=== PATIENT | female | born 1955 | race Caucasian/White ===

== ENCOUNTER → 2017-07-09 | Outpatient (CLI) | payer BC ==
[~2017-07-09] MED LIST: ACTOS15 MG PO; ALTACE1.25 MG PO; ASPIR 8181 M1 PO; Atarax,Vistaril PO; BIAXIN250 MG PO; CALAMINE LOTIO120 ML TP; CENTRUM SILVER1 EAC3 PO; CLARITIN10 MG PO; DELTASONE20 MG PO; FISH OIL 1,2001 EAC3 PO; FISH OIL500 MG PO; FLEXERIL10 MG PO; GABAPENTIN400 MG PO; GINKGO BILOBA120 M1 PO; Glucophage PO; Glucotrol PO; HALFPRIN162 MG; HUMALOG100 UNIT/1 SC; Hydrodiuril,Oretic,E PO; KEFLEX500 MG PO; LANTUS 3 M100 UNITS1 SC; LIPITOR20 MG PO; LOW DOSE ASPIRI81 M2 PO; Lipitor PO; MONOPRIL20 MG PO; MULTI VITAMIN1 EACH PO; NAPROSYN500 MG PO; NORCO 5/3251 TABLET PO; PERCOCET 5/31 TABLET PO; PRINIVIL20 MG PO; PROTONIX40 MG PO; TYLENOL PM EX-1 EACH PO; Tylenol Regular Stre PO; VICTOZA0.6 MG/0.2 S; VITAMIN D-32000 UNIT PO; VITAMIN D22000 UNIT PO; Victoza SC; ZANAFLEX2 M1 PO; ZOFRAN4 MG PO; Zocor PO; [UNRECOGNIZED DRUG - OTHER] PO
== END | disposition home or self-care (01) ==
LOC: NUC 09:40
DX: D35.1 Benign neoplasm of parathyroid gland (principal)
CPT/HCPCS: 78072; A9500; A9512